=== PATIENT | male | born 1970 | race Caucasian/White ===

== ENCOUNTER 2019-05-12 18:31 | Emergency (ER) | payer BC ==
[~2019-05-12] VITALS: Ht 172.7 cm; Wt 79.5 kg
[2019-05-12 21:01] VITALS: BP 118/59
== END 2019-05-12 21:04 | disposition home or self-care (01) ==
LOC: ER 18:33
DX: S02.2XXA Fracture of nasal bones, initial encounter for closed fracture (principal); W51.XXXA Accidental striking against or bumped into by another person, initial encounter; Y93.89 Activity, other specified; Y92.828 Other wilderness area as the place of occurrence of the external cause; Y99.8 Other external cause status
CPT/HCPCS: 99281